=== PATIENT | female | born 1990 | race African-American/Black ===

== ENCOUNTER 2020-11-11 05:04 | Inpatient (IN) ==
[2020-11-11] MEDS ORDERED: MEPERIDINE 50 MG/1 ML VIAL IV PRN (05:18)
[2020-11-11] MEDS ORDERED: BUTORPHANOL 2 MG/ML VIAL IV PRN (05:18)
[2020-11-11] MEDS ORDERED: ACETAMINOPHEN 325 MG TABLET PO PRN ×2 (05:18→17:05)
[2020-11-11] MEDS ORDERED: ONDANSETRON 4 MG/2 ML VIAL IV PRN ×2 (05:18→17:05)
[2020-11-11] MEDS ORDERED: OXYTOCIN/LR 20 UNIT/1,000 ML BAG IV SCH (05:30)
[2020-11-11] MEDS: LACTATED RINGERS 1,000 ML IV SCH ×2 (05:44→07:56)
[2020-11-11 05:45] LABS: Basophils % 0.2 % (0.0-0.8); Eosinophils # 0.1 10*3/uL (0.0-0.87); Eosinophils % 0.8 % (0.00-10.9); Hematocrit 24.8 VOL% (35.7-47.0); Hemoglobin 7.9 GM/DL (12.0-16.0); Immature Granulocytes % 0.8 %; Immature Granulocytes Absolute 0.08 #; Lymphocytes # 2.3 10*3/uL (1.4-4.0); Lymphocytes % 22.4 % (21.3-54.2); Mean Corpuscular HGB Conc 31.9 GM/DL (32-36); Mean Corpuscular Volume 78.5 FL (87-102); Mean Platelet Volume 11.8 FL (9.6-12.0); Monocytes % 7.5 % (1.7-12.7); Neutrophils % 68.3 % (38.7-73.9); Platelet Count 180 T/CUMM (130-400); Red Blood Count 3.16 MC/CUMM (3.8-5.5); Red Cell Distribution Width 14.7 % (9.3-17.3); White Blood Count 10.2 T/CUMM (4-12)
[2020-11-11] MEDS ORDERED: CLINDAMYCIN INJ 900 MG in PREMIX 1 EACH IV SCH (06:00)
[2020-11-11] MEDS ORDERED: ePHEDrine 50 MG/ML VIAL IV PRN (07:05)
[2020-11-11] MEDS ORDERED: FAMOTIDINE 20 MG/2 ML VIAL IV ONE (07:05)
[2020-11-11] MEDS ORDERED: PROMETHAZINE 25 MG/1 ML VIAL IM ONE (07:05)
[2020-11-11] MEDS ORDERED: diphenhydrAMINE 50 MG/1 ML VIAL IV PRN ×2 (07:05)
[2020-11-11] MEDS ORDERED: ONDANSETRON 4 MG/2 ML VIAL IV ONE (07:05)
[2020-11-11] MEDS ORDERED: hydrOXYzine HCL 25 MG/1 ML VIAL IM PRN (07:05)
[2020-11-11] MEDS ORDERED: NALOXONE 0.4 MG/ML VIAL IV PRN (07:05)
[2020-11-11] MEDS ORDERED: CITRIC ACID/SODIUM CITRATE 30 ML UDCUP PO ONE (07:05)
[2020-11-11] MEDS ORDERED: fentaNYL 2 MCG/ROPIV 0.2% EPID 100 ML EPIDURAL SCH (07:30)
[2020-11-11 08:53] LABS: Bilirubin,Urine Negative (Negative); Blood, Urine Negative (Negative); Glucose,Urine (UA) Negative (Negative); Ketones,Urine Negative (Negative); Mucus,Urine Occasional /LPF (Occasional); Nitrite,Urine Negative (Negative); Protein,Urine 30 MG/DL; RBC,Urine 2 /HPF (0-4); Squamous Epithelial Cell,Urine Occasional /HPF (0-10); Urine Appearance CLEAR (Clear); Urine Color Yellow (Yellow); Urine Specific Gravity 1.016 (1.001-1.035); Urine Urobilinogen < 2.0 EU/DL (0.2-1.0); WBC,Urine <1 /HPF (0-6)
[2020-11-11] MEDS ORDERED: miSOPROStoL 200 MCG TABLET ONE (11:15)
[2020-11-11] MEDS ORDERED: CARBOPROST TROMETHAMINE 250 MCG/ML AMP IM ONE (11:16)
[2020-11-11] MEDS ORDERED: METHYLERGONOVINE 0.2 MG/1 ML AMP ONE (11:16)
[2020-11-11 11:49] LABS: Cord Arterial Blood HCO3 24.5 MMOL/L
[2020-11-11 11:52] LABS: Cord Venous Blood HCO3 25.2 MMOL/L; Cord Venous Blood PO2 36.3
[2020-11-11] MEDS ORDERED: ATROPINE 0.4 MG/1 ML VIAL ONE ×2 (12:09→12:16)
[2020-11-11] MEDS ORDERED: NEOSTIGMINE 10 MG/10 ML VIAL ONE (12:09)
[2020-11-11] MEDS ORDERED: SODIUM CHLORIDE 0.9% 100 ML IV ONE (12:17)
[2020-11-11] MEDS: BUTALBITAL/ACETAMIN/CAFFEINE 50-325-40 MG TABLET PO SCH ×2 (12:31→18:22)
[2020-11-11] MEDS: IBUPROFEN 800 MG TABLET PO PRN ×2 (13:11→19:46)
[2020-11-11] MEDS: oxyCODONE/ACETAMINOPHEN 5-325 MG TABLET PO PRN ×2 (13:11→22:31)
[2020-11-11] MEDS: IRON (CARBONYL)/VIT C/B12/FA TABLET PO SCH (15:12)
[2020-11-11] MEDS ORDERED: IBUPROFEN 800 MG TABLET PO PRN (17:05)
[2020-11-11] MEDS ORDERED: BISACODYL 10 MG SUPP RECTAL PRN (17:05)
[2020-11-11] MEDS ORDERED: MAGNESIUM HYDROXIDE SUSP 30 ML UDCUP PO PRN (17:05)
[2020-11-11] MEDS ORDERED: LACTATED RINGERS 1,000 ML IV SCH (17:30)
[2020-11-11] MEDS: DOCUSATE SODIUM 100 MG CAPSULE PO SCH ×2 (19:46→23:59)
[2020-11-12] MEDS: BUTALBITAL/ACETAMIN/CAFFEINE 50-325-40 MG TABLET PO SCH ×2 (01:07→06:29)
[2020-11-12] MEDS: IBUPROFEN 800 MG TABLET PO PRN (03:27)
[2020-11-12 05:00] LABS: Basophils % 0.1 % (0.0-0.8); Eosinophils # 0.1 10*3/uL (0.0-0.87); Eosinophils % 0.9 % (0.00-10.9); Hematocrit 22.1 VOL% (35.7-47.0); Hemoglobin 7.1 GM/DL (12.0-16.0); Immature Granulocytes % 0.9 %; Immature Granulocytes Absolute 0.08 #; Lymphocytes # 2.4 10*3/uL (1.4-4.0); Lymphocytes % 28.2 % (21.3-54.2); Mean Corpuscular HGB Conc 32.1 GM/DL (32-36); Mean Corpuscular Volume 77.8 FL (87-102); Mean Platelet Volume 13.3 FL (9.6-12.0); Monocytes % 9.1 % (1.7-12.7); Neutrophils % 60.8 % (38.7-73.9); Red Blood Count 2.84 MC/CUMM (3.8-5.5); Red Cell Distribution Width 14.6 % (9.3-17.3); White Blood Count 8.7 T/CUMM (4-12)
[2020-11-12 05:04] LABS: Platelet Count 140 T/CUMM (130-400)
[2020-11-12 05:18] LABS: Hypochromasia 2+; Microcytosis 1+
[2020-11-12 05:19] LABS: Platelet Estimate Adequate
[2020-11-12] MEDS: DOCUSATE SODIUM 100 MG CAPSULE PO SCH ×2 (08:52→20:05)
[2020-11-12] MEDS: MULTIVITAMIN (PRENATAL) TABLET PO SCH (08:52)
[2020-11-12] MEDS: IRON (CARBONYL)/VIT C/B12/FA TABLET PO SCH (08:52)
[2020-11-12] MEDS: oxyCODONE/ACETAMINOPHEN 5-325 MG TABLET PO PRN ×2 (08:56→21:37)
[2020-11-12] MEDS ORDERED: ATROPINE 0.4 MG/1 ML VIAL ONE (11:40)
[2020-11-12] MEDS ORDERED: NEOSTIGMINE 10 MG/10 ML VIAL ONE (11:41)
[2020-11-12] MEDS ORDERED: KETOROLAC 10 MG TABLET PO PRN ×2 (12:25→19:01)
[2020-11-13] MEDS: oxyCODONE/ACETAMINOPHEN 5-325 MG TABLET PO PRN (06:18)
[2020-11-13] MEDS: DOCUSATE SODIUM 100 MG CAPSULE PO SCH (08:47)
[2020-11-13] MEDS: IRON (CARBONYL)/VIT C/B12/FA TABLET PO SCH (08:47)
[2020-11-13] MEDS: MULTIVITAMIN (PRENATAL) TABLET PO SCH (08:47)
[2020-11-13 11:44] VITALS: BP 133/78
== END 2020-11-13 13:05 | disposition home or self-care (01) | DRG 807 ==
LOC: N.LDOUT 05:04 → N.LD 05:07 → N.OB 14:37
PROVIDERS: ADMIT Obstetrics & Gynecology; ATTEND Obstetrics & Gynecology